=== PATIENT | female | born 1970 | race Caucasian/White ===

== ENCOUNTER 2025-11-11 16:06 | Emergency (ER) | payer MEDICAID, SELFPAY ==
[2025-11-11 16:07] VITALS: BP 150/93; PULSE 80; RESP 18; TEMP 36.8; O2SAT 99; BMI 26.3
--- NOTE | 2025-11-11 18:08 | CT_ITS ---
PROCEDURE: BRAIN/HEAD WITHOUT CONTRAST 11/11/2025 REASON FOR EXAM: HEADACHE, SINUS PAIN TECHNIQUE: Procedure Code: CTBR Modality: CT Procedure: BRAIN/HEAD WITHOUT CONTRAST Coronal and Sagittal reconstruction series were provided. One or more dose reduction techniques were used (e.g., Automated exposure control, adjustment of the mA and/or kV according to patient size, use of iterative reconstruction technique. COMPARISON: None available. FINDINGS: There is no extra-axial or intra-axial intracranial hemorrhage. No mass effect or midline shift is seen. The ventricles, sulci, and cisterns are normal in size and shape for the patient's age. There is normal michelle-white matter differentiation. The posterior fossa is grossly unremarkable. The skull is unremarkable. Visualized paranasal sinuses are clear. The mastoid air cells show normal translucency. CT/Brain/Head without Contrast IMPRESSION: No intracranial hemorrhage. No mass effect or midline shift. Reading Location: [facility]
--- NOTE | 2025-11-11 18:12 | EX.ED.DYSGE1 ---
HPI History of Present Illness Chief Complaint: Cold Sx Narrative Narrative: Patient is a 55-year-old female past medical history hyponatremia who presented to the emergency department chief complaint of headache, sinus pressure congestion not feeling well. She states that she developed a headache yesterday which progressively worsened slowly and states that her sinuses are also bothering her. She states that originally she was diagnosed with a sinus infection by her primary care physician was placed on a Z-Gene she states that she completed a full course of this. States that yesterday she had worsening symptoms and cannot come to the ER secondary to her headache and blurry vision therefore she had a telehealth visit with her doctor who prescribed her Augmentin as well as NSAID for pain control. She states that this did help some however given that she is still feeling very under the weather she came here to be further evaluated. Patient denies any head injuries or traumas denies any history of blood clots. [facility] Medical History Nasal polyp Hyponatremia Home Medications ?Medication ?Instructions ?Recorded ?Last Taken ?Type acetaminophen 500 mg capsule 500 mg PO Q4H PRN fever or pain 11/11/25 11/11/25 History amoxicillin 875 mg-potassium 1 tab PO BID 11/11/25 11/11/25 History clavulanate 125 mg tablet ibuprofen 600 mg tablet 600 mg PO Q6H PRN PRN fever or pain 11/11/25 11/11/25 History lorazepam 1 mg tablet 1 mg PO BID PRN agitation 11/11/25 11/10/25 History thyroid (pork) 90 mg tablet 90 mg PO DAILY 11/11/25 11/10/25 History ([place] Thyroid) Allergy/AdvReac Type Severity Reaction Status Date / Time Corticosteroids AdvReac excitabilty Verified 11/11/25 16:09 (Glucocorticoids) (steroids) Social History Smoking Status: Former smoker ROS ROS ED ROS Narrative Constitutional: Denies any fevers, chills, headaches Eyes, ears, nose, throat: Complains of sinus pressure as noted above Cardiovascular: Denies chest pain Respiratory: Denies shortness of breath Abdomen: Denies abdominal pain : Denies urinary symptoms Neurological: Denies numbness, weakness, tingling Musculoskeletal: Denies back pain Skin: Denies any rashes or lesions EXAM Physical Exam Narrative Exam Narrative: General: Patient was lying in bed rest comfortably did not appear to be in acute distress Head: Atraumatic, normocephalic Eyes: PERRL bilaterally, EOMI bilaterally, no conjunctival injection noted Neck: Soft, supple, trachea midline Cardiovascular: Regular rate and rhythm Respiratory: Clear to auscultation bilaterally Abdomen: Soft, nondistended, nontender to palpation Extremities: +5/5 strength in the bilateral lower extremities, Neurological: Patient commands knew that she was at [facility] year is 2024 NIH of 0 GCS 15 Skin: Warm, dry, tact no rashes or lesions noted Const Vital Signs: 11/11/25 16:07 11/11/25 18:34 11/11/25 19:31 Temperature 98.2 F Temperature Source Oral Pulse Rate 80 65 69 Respiratory Rate 18 14 Blood Pressure 150/93 H 143/84 H 131/83 H Blood Pressure Mean 112 103 99 Pulse Ox 99 100 99 Oxygen Delivery Method Room Air Room Air MDM MDM MDM Narrative Medical decision making narrative: Patient is a 55-year-old female who presented to the emergency department with a chief complaint of headache, blurry vision and sinus pressure. On the differential diagnosis includes but not limited to complex migraine, upper respiratory infection secondary viral etiology, intracranial hemorrhage, sinus infection. Once workup is obtained and reviewed she will be reevaluated. Patient will be given IV fluids, Benadryl, gram of Tylenol, Zofran Patient was concerned that the last time her head was hurting like this with her headache she had low sodium therefore this was added on to be checked. Patient sodium normal 135, potassium normal at 4, creatinine was 0.71. Patient CT head brain without contrast reviewed showed no acute intracranial hemorrhage no mass effect or midline shift I went in and evaluated the patient and she states that she is still having a headache. I inquired if her pain is better at all and she states that it is however still there therefore I offered her sumatriptan and she states that she does not want this medication as she had a migraine medication in the past and it made her feel off. She states that she would like to go home at this point in time and states she will suffer at home. I will give her a Valium to go to try to get her to rest this evening to see if this also takes the remainder of the headache away. She is agreeable to plan all questions were answered she was discharged home in stable condition Lab Data Labs: Laboratory Results - last 24 hr 11/11/25 18:54 Sodium 135 Potassium 4.0 Chloride 100 Carbon Dioxide 25.3 Anion Gap 10 BUN 9 Creatinine 0.71 Estim Creat Clear Calc 96.29 Est GFR (MDRD) Non-Af 100 BUN/Creatinine Ratio 12.1 Glucose 92 Calcium 9.4 Radiography Diagnostic Testing: Clinical Impression(s) from Imaging Studies Brain CT 11/11/25 18:08 IMPRESSION: No intracranial hemorrhage. No mass effect or midline shift. Reading Location: [facility] Discharge Plan Triage Chief Complaint: Cold Sx ED Provider: Kenny Ojeda Dx/Rx/DC Orders Clinical Impression: Headache, Encounter for medical screening examination Prescriptions: No Action ibuprofen 600 mg tablet 600 mg PO Q6H PRN PRN (Reason: fever or pain) lorazepam 1 mg tablet 1 mg PO BID PRN (Reason: agitation) thyroid (pork) [[place] Thyroid] 90 mg tablet 90 mg PO DAILY amoxicillin-pot clavulanate 875-125 mg tablet 1 tab PO BID acetaminophen 500 mg capsule 500 mg PO Q4H PRN (Reason: fever or pain) Primary Care Provider: Care Physician,Damaris Primary Referrals: NOT,DEFINED [Non-Staff, None] Activity Restrictions/Additional Instructions: Follow-up your doctor in outpatient setting. Continue to rotate Tylenol and ibuprofen [id number] for pain control when you do this you can take something every 3 hours for pain with max dose Tylenol 24 hours 4000 mg max dose of ibuprofen in [address] of your head did not show any acute findings your sinuses were clear. Your sodium was normal. Print Language: [place] Disposition Disposition: Home, Self Care
[2025-11-11] MEDS: 0.9% Normal Saline (1000mL) 1,000 ML 999 ML IV (18:26)
[2025-11-11] MEDS: DiphenhydrAMINE 50 MG/ML Syringe 25 MG IV (18:27)
[2025-11-11 18:34] VITALS: BP 143/84; PULSE 65; O2SAT 100
[2025-11-11 19:31] VITALS: BP 131/83; PULSE 69; RESP 14; O2SAT 99
[2025-11-11 19:33] LABS: Anion Gap 10 (5-15); BUN 9 mg/dL (4-19); BUN/Creat Ratio 12.1 RATIO (10-20); Calcium,Total 9.4 mg/dL (7.6-11.0); Carbon Dioxide 25.3 mmol/L (21.0-32.0); Chloride 100 mmol/L (98-108); Estimated Creatinine Clearance 96.29 ml/min (50-250); Glucose 92 mg/dL (70-99); Potassium 4.0 mmol/L (3.3-5.1)
[2025-11-11 21:20] VITALS: BP 138/61; PULSE 68; O2SAT 100
[2025-11-11 21:22] VITALS: BP 138/61; PULSE 68; RESP 16; TEMP 36.6; O2SAT 100
== END 2025-11-11 21:32 | disposition home or self-care (01) ==
PROVIDERS: Emergency Provider Emergency Medicine; Visit Provider Emergency Medicine
DX: R51.9 Headache, unspecified (principal); Z87.891 Personal history of nicotine dependence
CPT/HCPCS: 70450; 80048; 96361; 96374; 96375; 99284; A4216; J2405